=== PATIENT | female | born 1990 | race Caucasian/White ===

== ENCOUNTER → 2021-12-27 09:48 | Outpatient (CLI) | payer OTHER, SELFPAY ==
--- NOTE | ~2021-12-27 | XR_ITS ---
EXAM: XR thoracic spine 2V DATE: 12/27/2021 10:27 HISTORY: Mid back pain . COMPARISON: None available. FINDINGS: Vertebral body alignment intact. Vertebral body heights preserved. No disc space narrowing . No traumatic malalignment or fracture. Visualized lung parenchyma is clear. IMPRESSION: Normal thoracic spine radiograph findings. Reviewed, dictated and finalized at location K.
--- NOTE | ~2021-12-27 | XR_ITS ---
EXAM: XR cervical spine 4-5V DATE: 12/27/2021 10:27 HISTORY: Neck pain . COMPARISON: None available. FINDINGS: Craniocervical association and atlantoaxial joint are aligned. No prevertebral soft tissue swelling. Reversed lordosis which can occur with positioning or muscle spasm. Neural foramina are wi pavan patent bilaterally Vertebral bodies are aligned. Vertebral body heights and disc spaces are main tained. Normal facets and posterior elements. IMPRESSION: Reversed cervical lordosis. Otherwise normal cervical spine radiograph findings. Reviewed, dictated and finalized at location K. IMPRESSION: Reversed cervical lordosis. Otherwise normal cervical spine radiogr aph findings.
--- NOTE | ~2021-12-27 | XR_ITS ---
EXAM: XR lumbar spine 2-3V DATE: 12/27/2021 10:27 HISTORY: Low back pain . COMPARISON: None available. FINDINGS: 5 nonrib-bearing lumbar-type vertebral bodies. Pedicles intact. Normal vertebral body alig nment. Mild anterior wedge deformity at L3. Multilevel mild marginal osteophytosis. Mild and moderate disc space narrowing at L4-5 and L5-S1 respectively. Mild facet sclerosis in the lower lumbar spine. No fracture or dislocation. IMPRESSION: Mild anterior wedge deformity at L3 of uncertain age, correlate with pain/tenderness. Mul tilevel lumbar degenerative disc disease, moderate at L5-S1. Mild lower lumbar facet arthropathy. Reviewed, dictated and finalized at location K. IMPRESSION: Mild anterior wedge deformity at L3 of uncertain age, correlate wit h pain/tenderness. Multilevel lumbar degenerative disc disease, moderate at L5- S1. Mild lower lumbar facet arthropathy.
== END ==
PROVIDERS: PCP Nurse Practitioner Family; Visit Provider Chiropractor
DX: M54.2 Cervicalgia (principal); M54.50 Low back pain, unspecified; M53.86 Other specified dorsopathies, lumbar region; M51.36 Other intervertebral disc degeneration, lumbar region
CPT/HCPCS: 72050; 72070; 72100

== ENCOUNTER → 2023-02-22 15:41 | Outpatient (CLI) | payer OTHER, SELFPAY ==
--- NOTE | ~2023-02-22 | XR_ITS ---
EXAMINATION: XR cervical spine 4-5V, XR lumbar spine 2-3V, XR thoracic spine 2V DATE: 02/22/2023 16:15 INDICATION: Neck, mid and low back pain. TECHNIQUE: 1. Standing AP, lateral, lateral flexion, lateral extension and odontoid views of the cervical spine were obtained. 2. AP, lateral and lateral swimmers views of the thoracic spine were obtained. 3. AP, lateral and cone-down lateral lumbosacral views of the lumbar spine were obtained. COMPARISON: 12/27/2021 FINDINGS: Cervical spine: Again seen is straightening of the normal cervical lordosis in the neutral position. There is normal motion with flexion and extension. Odontoid is intact with normal atlantoaxial interval. Vertebral gina dy heights are normal. Disc spaces are normal. Mild uncovertebral and facet osteoarthritis at a few l evels in the cervical spine. No fracture identified. Prevertebral soft tissues are normal. Thoracic spine: 7 degrees lower thoracic levocurvature. Sagittal alignment is normal. Vertebral body heights are norm al. Mild disc height loss and very small endplate osteophytes at a few levels in the lower thoracic s pine. No fracture identified. Visualized portion of the lungs are clear with no pleural effusion or p neumothorax. Cardiomediastinal silhouette is normal. Lumbar spine: Alignment is normal. Vertebral body heights are normal. Mild disc height loss at L5-S1. Mild osteoart hritis at a few of the lumbar facet joints. Visualized sacrum and bilateral sacroiliac joints are nor mal. No fracture identified. IMPRESSION: 1. Mild lower thoracic levocurvature with mild spondylosis. 2. Mild cervical facet and uncovertebral osteoarthritis. 3. Mild lower lumbar spondylosis. Reviewed, dictated and finalized at location A. L [employer] IMPRESSION: 1. Mild lower thoracic levocurvature with mild spondylosis. 2. Mild cervical facet and uncovertebral osteoarthritis. 3. Mild lower lumbar spondylosis. IMPRESSION: 1. Mild lower thoracic levocurvature with mild spondylosis. 2. Mild cervical facet and uncovertebral osteoarthritis. 3. Mild lower lumbar spondylosis.
== END ==
PROVIDERS: PCP Physician Assistant; Visit Provider Chiropractor
DX: M47.894 Other spondylosis, thoracic region (principal); M50.30 Other cervical disc degeneration, unspecified cervical region; M47.896 Other spondylosis, lumbar region
CPT/HCPCS: 72050; 72070; 72100